=== PATIENT | male | born 1985 | race Caucasian/White ===

== ENCOUNTER 2021-12-03 09:04 | Inpatient (IN) | payer MEDICAID ==
[~2021-12-03] VITALS: Ht 167.6 cm; Wt 80.0 kg
[2021-12-03 09:42] LABS: BASOPHILS % (AUTO) 0.3 % (0-1); EOSINOPHILS # (AUTO) 0.1 X10'3 (0-0.9); EOSINOPHILS % (AUTO) 0.5 % (0-6); HEMATOCRIT 41.8 % (42.0-52.0); HEMOGLOBIN 13.8 g/dl (14.0-17.9); LYMPHOCYTES # (AUTO) 1.2 X10'3 (1.1-4.8); LYMPHOCYTES % (AUTO) 6.6 % (21-51); MEAN CORPUSCULAR HEMOGLOBIN 27.8 PG (27.0-31.0); MEAN CORPUSCULAR VOLUME 84.2 FL (78-98); MONOCYTES # (AUTO) 1.4 X10'3 (0-0.9); MONOCYTES % (AUTO) 7.8 % (2-12); NEUTROPHILS # (AUTO) 15.4 X10'3 (1.8-7.7); NEUTROPHILS % (AUTO) 84.8 % (42-75); PLATELET COUNT 267 X10'3 (140-440); RED BLOOD COUNT 4.96 X10'6 (4.70-6.10); RED CELL DISTRIBUTION WIDTH 14.5 % (11.5-14.5); WHITE BLOOD COUNT 18.1 X10'3 (4.5-11.0)
[2021-12-03 09:59] LABS: ALANINE AMINOTRANSFERASE 88 U/L (12-78); ALBUMIN 4.1 G/DL (3.4-5.0); ALBUMIN/GLOBULIN RATIO 1.1 (1.1-1.5); ALKALINE PHOSPHATASE 112 IU/L (46-116); ANION GAP 6 (8-16); ASPARTATE AMINO TRANSFERASE 31 U/L (10-37); BILIRUBIN,TOTAL 0.6 MG/DL (0.1-1.0); BLOOD UREA NITROGEN 13 MG/DL (7-18); BUN/CREATININE RATIO 19.4 (5.4-32.0); CALCIUM 8.9 MG/DL (8.5-10.1); CHLORIDE 105 MMOL/L (99-107); CREATININE 0.67 MG/DL (0.60-1.10); GLUCOSE 92 MG/DL (70-104); POTASSIUM 3.9 MMOL/L (3.5-5.1); SODIUM 139 MMOL/L (135-145); TOTAL CARBON DIOXIDE 27.8 MMOL/L (24-32); TOTAL PROTEIN 7.9 G/DL (6.4-8.2); eGFR > 90 ML/MIN
[2021-12-03] MEDS ORDERED: acetaminophen 325mg tablet PO ONE ×2 (10:10→13:00)
[2021-12-03 12:32] LABS: CLARITY,URINE SLIGHTLY CLOUDY (Clear); COLOR,URINE YELLOW (Yellow); GLUCOSE, URINE NEGATIVE (Neg); KETONES,URINE TRACE mg/dl (Neg); LEUKOCYTE ESTERASE ,URINE NEGATIVE (Neg); NITRITES, URINE NEGATIVE (Neg); OCCULT BLOOD,URINE NEGATIVE (Neg); PH,URINE 5.5 (4.8-8.0); PROTEIN,URINE NEGATIVE (Neg); UROBILINOGEN,URINE 0.2 E.U/dL (0.2-1.0)
[2021-12-03 12:38] LABS: UA COLLECTION TYPE NON-SPECIFIED
[2021-12-03 12:48] LABS: MUCUS STRANDS MANY /LPF (Neg); SQUAMOUS EPITHELIAL CELL,UR FEW /LPF (FEW)
[2021-12-03 12:49] LABS: BACTERIA,URINE FEW /HPF (Neg); CAL OXALATE CRYSTALS 1+ /HPF (NEGATIVE); RBC,URINE 0-2 /HPF (0-2); WBC,URINE 0-4 /HPF (0-4)
[2021-12-03] MEDS ORDERED: naloxone 0.4 mg/ml inj IV ONE (13:10)
[2021-12-03] MEDS ORDERED: iohexol 300mg/ml 100ml inj. ONE (13:56)
[2021-12-03 15:48] LABS: C-REACTIVE PROTEIN 0.46 MG/DL (0.0-0.5)
[2021-12-03 15:53] LABS: URINE AMPHETAMINE SCREEN POSITIVE (Neg); URINE BARBITUATE SCREEN NEGATIVE (Neg); URINE BENZODIAZEPINES SCREEN NEGATIVE (Neg); URINE CANNABINOID SCREEN NEGATIVE (Neg); URINE COCAINE SCREEN NEGATIVE (Neg); URINE METHADONE SCREEN NEGATIVE (Neg); URINE OPIATE SCREEN POSITIVE (Neg); URINE PHENCYCLIDINE SCREEN NEGATIVE (Neg)
[2021-12-03] MEDS ORDERED: vancomycin/NS 1 GM ADD-VANTAGE 250 ML X 1 DOSE IV ONE (16:15)
[2021-12-03] MEDS ORDERED: NO HOME MEDS (16:21)
[2021-12-03] MEDS ORDERED: normal saline 1000ML IV soln IVB ONE (18:55)
[2021-12-03] MEDS ORDERED: GADOTERATE MEGLUMINE 7.5 MMOL/15 ML VIAL IV ONE (18:59)
[2021-12-03 19:44] LABS: BASOPHILS # (AUTO) 0.1 X10'3 (0-0.2); BASOPHILS % (AUTO) 0.5 % (0-1); EOSINOPHILS # (AUTO) 0.1 X10'3 (0-0.9); EOSINOPHILS % (AUTO) 0.3 % (0-6); HEMATOCRIT 43.7 % (42.0-52.0); HEMOGLOBIN 14.4 g/dl (14.0-17.9); LYMPHOCYTES # (AUTO) 1.8 X10'3 (1.1-4.8); LYMPHOCYTES % (AUTO) 10.9 % (21-51); MEAN CORPUSCULAR HEMOGLOBIN 27.4 PG (27.0-31.0); MEAN CORPUSCULAR HGB CONC 32.9 g/dL (33.0-36.5); MEAN CORPUSCULAR VOLUME 83.2 FL (78-98); MEAN PLATELET VOLUME 8.6 FL (7.4-10.4); MONOCYTES # (AUTO) 1.4 X10'3 (0-0.9); MONOCYTES % (AUTO) 8.5 % (2-12); NEUTROPHILS # (AUTO) 13.4 X10'3 (1.8-7.7); NEUTROPHILS % (AUTO) 79.8 % (42-75); PLATELET COUNT 297 X10'3 (140-440); RED BLOOD COUNT 5.25 X10'6 (4.70-6.10); RED CELL DISTRIBUTION WIDTH 14.3 % (11.5-14.5); WHITE BLOOD COUNT 16.8 X10'3 (4.5-11.0)
--- NOTE | 2021-12-04 01:00 | NUR ---
Patient in room [facility]. I have received report from MELISSA Tirado and had the opportunity to ask questions and assume patient care.
--- NOTE | 2021-12-04 01:15 | NUR ---
pt arrived via gurney. pt ambulated to bed and got settled in.
[2021-12-04 01:30] VITALS: BP 154/89
[2021-12-04] MEDS ORDERED: ondansetron/PF 4mg/2ml inj IV PRN (02:10)
[2021-12-04] MEDS ORDERED: diphenhydrAMINE 50 mg/ml inj IV PRN (02:10)
[2021-12-04] MEDS ORDERED: HYDROcodone/acetaminophen 5mg/325mg tablet PO PRN (02:10)
[2021-12-04] MEDS ORDERED: diphenhydrAMINE 25mg capsule PO PRN (02:10)
[2021-12-04] MEDS ORDERED: HYDROcodone/acetaminophen 10/325mg tab PO PRN (02:10)
[2021-12-04] MEDS ORDERED: morphine 2 MG/ML inj. syringe IV PRN ×2 (02:10)
[2021-12-04] MEDS ORDERED: ondansetron 4mg rapidly disintigrating tab PO PRN (02:10)
[2021-12-04] MEDS ORDERED: acetaminophen 650mg rectal suppository RC PRN (02:10)
[2021-12-04] MEDS ORDERED: mag hydrox/Alum hydrox/simeth 30ml oral suspension PO PRN (02:10)
[2021-12-04] MEDS ORDERED: magnesium hydroxide 30ml (MOM) UD suspension PO PRN (02:10)
[2021-12-04] MEDS ORDERED: bisacodyl 10mg suppository rectal RC PRN (02:10)
[2021-12-04] MEDS ORDERED: acetaminophen 325mg tablet PO PRN ×2 (02:10)
[2021-12-04] MEDS: dextrose 5%-1/2 normal saline 1,000 ML IV SCH ×2 (03:16→15:29)
--- NOTE | 2021-12-04 06:37 | NUR ---
Problems reprioritized. Patient report given, questions answered & plan of care reviewed with MELISSA Bhakta.
--- NOTE | 2021-12-04 06:41 | NUR ---
Patient in room [facility]. I have received report from Chrissy TORRES and had the opportunity to ask questions and assume patient care.
[2021-12-04 06:42] LABS: CREATINE KINASE 66 U/L (39-308); MAGNESIUM 2.2 MG/DL (1.5-2.4)
[2021-12-04 07:00] VITALS: BP 149/98
[2021-12-04 08:17] VITALS: BP 149/98
[2021-12-04] MEDS: nicotine 21mg patch - 24 hr TD SCH (08:21)
[2021-12-04] MEDS: docusate sod 100mg capsule PO SCH ×2 (08:22→19:48)
[2021-12-04] MEDS: heparin, porcine 5000 units/ml vial SQ SCH ×2 (08:22→19:49)
[2021-12-04] MEDS: pantoprazole 40mg Tablet.DR PO SCH (08:22)
[2021-12-04 10:41] LABS: BASOPHILS # (AUTO) 0.1 X10'3 (0-0.2); EOSINOPHILS # (AUTO) 0.1 X10'3 (0-0.9); EOSINOPHILS % (AUTO) 1.1 % (0-6); HEMATOCRIT 40.7 % (42.0-52.0); HEMOGLOBIN 13.4 g/dl (14.0-17.9); LYMPHOCYTES # (AUTO) 1.5 X10'3 (1.1-4.8); LYMPHOCYTES % (AUTO) 15.5 % (21-51); MEAN CORPUSCULAR HEMOGLOBIN 27.6 PG (27.0-31.0); MEAN CORPUSCULAR HGB CONC 32.9 g/dL (33.0-36.5); MEAN PLATELET VOLUME 9.1 FL (7.4-10.4); MONOCYTES % (AUTO) 10.1 % (2-12); NEUTROPHILS # (AUTO) 6.9 X10'3 (1.8-7.7); NEUTROPHILS % (AUTO) 72.3 % (42-75); PLATELET COUNT 266 X10'3 (140-440); RED BLOOD COUNT 4.84 X10'6 (4.70-6.10); RED CELL DISTRIBUTION WIDTH 14.3 % (11.5-14.5); WHITE BLOOD COUNT 9.5 X10'3 (4.5-11.0)
[2021-12-04 10:58] LABS: ALANINE AMINOTRANSFERASE 61 U/L (12-78); ALBUMIN 3.1 G/DL (3.4-5.0); ALBUMIN/GLOBULIN RATIO 0.8 (1.1-1.5); ALKALINE PHOSPHATASE 85 IU/L (46-116); ANION GAP 10 (8-16); ASPARTATE AMINO TRANSFERASE 24 U/L (10-37); BILIRUBIN,TOTAL 0.4 MG/DL (0.1-1.0); BLOOD UREA NITROGEN 12 MG/DL (7-18); BUN/CREATININE RATIO 15.8 (5.4-32.0); C-REACTIVE PROTEIN 8.54 MG/DL (0.0-0.5); CALCIUM 8.6 MG/DL (8.5-10.1); CHLORIDE 110 MMOL/L (99-107); CREATININE 0.76 MG/DL (0.60-1.10); GLUCOSE 95 MG/DL (70-104); POTASSIUM 3.7 MMOL/L (3.5-5.1); SODIUM 143 MMOL/L (135-145); TOTAL CARBON DIOXIDE 23.5 MMOL/L (24-32); TOTAL PROTEIN 6.8 G/DL (6.4-8.2); eGFR > 90 ML/MIN
[2021-12-04 11:00] VITALS: BP 149/108
[2021-12-04] MEDS ORDERED: ketorolac trometh. 30mg/ml inj. IV PRN (12:20)
--- NOTE | 2021-12-04 18:00 | NUR ---
Patient in room [facility]. I have received report from MELISSA Bhakta and had the opportunity to ask questions and assume patient care.
[2021-12-04 20:00] VITALS: BP 156/96
[2021-12-04] MEDS ORDERED: temazepam 15mg capsule PO PRN (21:00)
[2021-12-05 00:05] VITALS: BP 160/109
[2021-12-05] MEDS: dextrose 5%-1/2 normal saline 1,000 ML IV SCH ×2 (01:28→08:10)
[2021-12-05 06:21] LABS: BASOPHILS % (AUTO) 0.5 % (0-1); EOSINOPHILS # (AUTO) 0.1 X10'3 (0-0.9); EOSINOPHILS % (AUTO) 1.6 % (0-6); HEMATOCRIT 41.4 % (42.0-52.0); HEMOGLOBIN 13.7 g/dl (14.0-17.9); LYMPHOCYTES # (AUTO) 1.4 X10'3 (1.1-4.8); LYMPHOCYTES % (AUTO) 16.4 % (21-51); MEAN CORPUSCULAR HEMOGLOBIN 27.5 PG (27.0-31.0); MEAN CORPUSCULAR HGB CONC 33.2 g/dL (33.0-36.5); MEAN CORPUSCULAR VOLUME 82.7 FL (78-98); MEAN PLATELET VOLUME 8.9 FL (7.4-10.4); MONOCYTES # (AUTO) 0.8 X10'3 (0-0.9); MONOCYTES % (AUTO) 9.2 % (2-12); NEUTROPHILS % (AUTO) 72.3 % (42-75); PLATELET COUNT 260 X10'3 (140-440); RED CELL DISTRIBUTION WIDTH 14.4 % (11.5-14.5); WHITE BLOOD COUNT 8.3 X10'3 (4.5-11.0)
--- NOTE | 2021-12-05 06:26 | NUR ---
Problems reprioritized. Patient report given, questions answered & plan of care reviewed with MELISSA Edward.
[2021-12-05 06:30] VITALS: BP 153/99
--- NOTE | 2021-12-05 06:30 | NUR ---
Patient in room [facility]. I have received report from MELISSA Lowe and had the opportunity to ask questions and assume patient care.
[2021-12-05 06:37] LABS: ALANINE AMINOTRANSFERASE 51 U/L (12-78); ALBUMIN 3.2 G/DL (3.4-5.0); ALBUMIN/GLOBULIN RATIO 0.8 (1.1-1.5); ALKALINE PHOSPHATASE 78 IU/L (46-116); ANION GAP 9 (8-16); ASPARTATE AMINO TRANSFERASE 21 U/L (10-37); BILIRUBIN,TOTAL 0.2 MG/DL (0.1-1.0); BLOOD UREA NITROGEN 12 MG/DL (7-18); BUN/CREATININE RATIO 17.9 (5.4-32.0); CALCIUM 8.7 MG/DL (8.5-10.1); CHLORIDE 110 MMOL/L (99-107); CREATININE 0.67 MG/DL (0.60-1.10); GLUCOSE 117 MG/DL (70-104); POTASSIUM 3.7 MMOL/L (3.5-5.1); SODIUM 143 MMOL/L (135-145); TOTAL CARBON DIOXIDE 23.6 MMOL/L (24-32); eGFR > 90 ML/MIN
[2021-12-05] MEDS: pantoprazole 40mg Tablet.DR PO SCH (07:30)
[2021-12-05] MEDS: docusate sod 100mg capsule PO SCH (08:00)
[2021-12-05] MEDS: heparin, porcine 5000 units/ml vial SQ SCH (08:00)
[2021-12-05] MEDS: nicotine 21mg patch - 24 hr TD SCH (08:21)
--- NOTE | 2021-12-05 09:35 | NUR ---
Pt dressed & states he is leaving. Informed pt about AMA & he states he will sign the form. IV DC'd, tip intact. notified of pt leaving AMA.
--- NOTE | 2021-12-05 09:45 | NUR ---
Pt left AMA. Pt took all belongings. Pt ambulated off the unit by himself.
--- NOTE | 2021-12-05 11:21 | NUR ---
Malnutrition consult: Pt reports 14-23 lb wt loss with decreased appetite per malnutrition risk screen with RN. No scaled wt hx in EMR and current wt is not scaled, though if accurate it is 124% IBW. Pt on a regular diet and eating well with 100% PO intake throughout LOS meeting estimated nutrient needs. Pt with no documented decrease in muscle strength or edema and per H&P appears well developed well nourished. Pt currently lacks a minimum of two criteria for malnutrition. Will continue to follow. Addendum: 12/05/21 at [address] Amended: Links added.
== END 2021-12-05 09:45 | disposition left against medical advice (07) | DRG 349 ==
LOC: ER 09:05 → ED HOLD 22:14 → EDBEDREQ 12-04 00:04 → SUR 3N 12-04 01:00
PROVIDERS: ADMIT Family Medicine; ATTEND Family Medicine
DX: T84.89XA Other specified complication of internal orthopedic prosthetic devices, implants and grafts, initial encounter (principal); E87.2 Acidosis; M25.552 Pain in left hip; F11.129 Opioid abuse with intoxication, unspecified; E86.0 Dehydration; D72.829 Elevated white blood cell count, unspecified; I10 Essential (primary) hypertension; R82.4 Acetonuria; Y83.8 Other surgical procedures as the cause of abnormal reaction of the patient, or of later complication, without mention of misadventure at the time of the procedure; Z53.29 Procedure and treatment not carried out because of patient's decision for other reasons; F15.129 Other stimulant abuse with intoxication, unspecified; Z59.00 Homelessness unspecified; Z72.0 Tobacco use; Z71.51 Drug abuse counseling and surveillance of drug abuser; Z71.6 Tobacco abuse counseling; Y92.89 Other specified places as the place of occurrence of the external cause
CPT/HCPCS: 36415; 71045; 72170; 73551; 73701; 73723; 80053; 80305; 81001; 82550; 83605; 83735; 83880; 84100; 84145; 84443; 85025; 85610; 85651; 86140; 87040; 87081; 93926; 93971; 97116; 97161; 99285; A9575; G0378; J1644; J1885; J2310; J3370; J7030; J7042; Q9967